=== PATIENT | female | born 1970 | race Caucasian/White ===

== ENCOUNTER → 2016-10-17 | Outpatient (CLI) | payer BC ==
--- NOTE | 2016-10-17 10:46 | US ---
October 17, [address] Dean and Providers at [facility], Thank you for requesting consultation and a detailed obstetrical ultrasound for Ms. Tawanda chavezar y to advanced maternal age with an IVF . As you know, Waleska is a 46 year old G 3, P 0020 . Her due date is 03/13/17 by IVF dating. Her current gestational age based on this dating is 19 weeks 0 days. Her genetic screening revealed a reassuring NIPT and MSAFP screen. Her is complicated by advanced maternal age, IVF using donor embryo (egg and sperm), histor y of LEEP, and chronic hypertension not requiring medications. Her blood pressure in our office was 134/98. She says that this is the range at home too. She had a cardiac workup prior to IVF about a year ago with [facility]. No significant concerns occurred. She has known proteinuria at 449 mg and a normal Cr of 0.6. ULTRASOUND Number of fetuses: 1 Placental location: Posterior and low lying 1.7-2.1 cm from the os. Color and Spectral Doppler reve al a maternal vessel adjacent to the internal cervix but no overlying vessels. Placental cord insertion: Intraplacental presentation: Cephalic Cervix: 4.5 cm viewed transvaginally. There is no evidence of cervical insufficiency. Maximum Vertical Pocket: 4.0 cm The adnexa were evaluated. No pathology was seen. Right ovary is not seen on today's ultrasound. Left ovary is not seen on today's ultrasound. MEASUREMENTS: Biparietal diameter: 44 mm 19 weeks, 3 days Head circumference: 167 mm 19 weeks, 3 days Abdominal circumference: 143 mm 19 weeks, 5 days Femur length: 28 mm 18 weeks, 3 days Humerus length: 28 mm 19 weeks, 0 days Transcerebellar diameter: 20 mm 19 weeks, 4 days Average ultrasound age: 19 weeks, 2 days Estimated weight: 274 gm weight percentile: 51% ANATOMY Supratentorial brain: Normal including views of the falx, cavum septum pellucidum and choroids Lateral Ventricle: Normal, measuring 4.3 mm Posterior fossa: Normal including the cerebellum and cisterna magna Spine: Normal Nuchal fold: 3.4 mm normal Face: Normal views of the lip and nose area Profile: Normal Palate: Normal appearance of the alveolar ridge Cardiac Exam: Four chamber view of the heart: Normal including intraventricular septum Left Ventricular Outflow Tract: Normal Right Ventricular Outflow Tract: Normal 3 Vessel View: Normal Tracheal View: Normal Aortic Arch: Normal Ductal Arch: Normal SVC/IVC: Normal Heart Rate: 163 bpm Diaphragm: No overt abnormalities have been detected Stomach: Normal Umbilical cord insertion: Normal Right kidney: Normal Left kidney: Normal Bladder: Normal Number of cord vessels: Three Upper extremities: Normal including the number, and architecture Lower extremities: Normal including the number and architecture Gender: Male IMPRESSION: 1. Intrauterine at 19 w 0 d, LIGIA of 03/13/17. This is consistent with her previously esta blished dates. 2. Today's sonogram reveals a normal appearing fetus. 3. Cervical length measures 4.5 cm, and is without evidence of insufficiency. 4. Low lying posterior placenta 5. Advanced maternal age 6. IVF using a donor embryo 7. Chronic hypertension RECOMMENDATIONS: I was pleased to review today's ultrasound with your patient. I have reassured her that the gr owth and amniotic fluid volume are appropriate for this gestational age. The detailed anatomic surve y did not reveal any overt abnormalities. This was conceived using a donor embryo an d the genetic risk is based on the young age. Thus, she is low risk for aneuploidy. A transvaginal ultrasound was performed to better evaluate the relationship of the placenta to the ce rvix. The placenta is low lying and very likely will resolve later in . There were no over lying vessels. Despite her history of LEEP, her cervix appeared long and closed without concer ns for insufficiency. We discussed the cardiovascular system as it pertains to , particularly the changes of blood volume and vascular resistance. Her preexisting hypertension has already yielded proteinuria. This will likely increase in the third trimester related to the increased renal plasma flow and will not necessarily be a good measure to evaluate risk for preeclampsia. We discussed that she has several r isk factors for preeclampsia including first , family history, IVF, CHTN and advanced matern al age. She is already on low dose aspirin to decrease the risk. We reviewed potential signs/sympto ms worrisome for preeclampsia. Chronic hypertension should have antihypertensive medication when blo od pressures are in the severe range (SBP >160 and/or DBP >105). Antepartum testing and growth evalu ation in the third trimester would also be recommended if on antihypertensives. In addition to preec lampsia, chronic hypertension can increase risks including but not limited to worsening of hypertension outside of with potential for end organ damage if poorly controlled, miscarria ge/stillbirth, abruption, poor growth, operative delivery and delivery with its inheren t risks. Delivery planning is dependent on the course of care, but for uncomplicated chroni c hypertension delivery could be considered at 38 weeks; earlier if clinically indicated for other ma ternal/ complication. In summary, I recommend the followin. Continue low dose aspirin. 2. Continue home assessment of blood pressure and instructed to call for severe range blood pressure s. 3. Antihypertensives recommended for severe range blood pressures and careful assessment for superim posed preeclampsia. It is important to note that proteinuria may increase in the third trimester and may not be indicative of preeclampsia. 4. Antepartum testing if antihypertensives started for blood pressure control, or at 36 weeks for ag e >40 years. 5. Ultrasound follow up as follows: -I have taken the liberty of scheduling your patient for a echocardiogram in 4-5 weeks with [facility] -Follow up assessment of placenta location and growth at 28 weeks. -Follow up growth at 32 weeks secondary to AMA >40 and CHTN 6. Delivery planning: Dependent on the course of care; likely at 38 weeks. Earlier if clinically i ndicated. Thank you for allowing me the opportunity to consult and evaluate your patient. Should you have any questions or concerns please do not hesitate to contact me. This visit was approximately 45 minutes in length with 30 minutes spent in direct face to face consultation reviewing aneuploidy screening ve rsus definitive genetic diagnosis. Sincerely, Radha Jonas MD [facility] Department of Obstetrics & Gynecology [facility]
--- NOTE | 2016-10-17 11:24 | US ---
OB Sonogram Technique: Transabdominal and transvaginal scanning History: LIGIA March 13, 2017, 19 weeks 0 days, check growth and anatomy, advanced maternal age, history of complete previa at 16 weeks Comparison: None Findings: The cervix is closed measuring 4.2-3.9 cm transabdominally. Transvaginally the cervix measu res 4.5 cm in length. There is no funneling of the internal os. The posterior margin of the placenta is 1.7-2.1 cm above the internal os transvaginally. The fetus is in vertex presentation. Placenta is posterior without abruption. Maximum amniotic fluid pocket = 4.0 cm. Either maternal ovary is visible. The heart is 4 chambered and has a rate of 1 63 bpm. The right and left ventricular outflow tra cks look normal. The interventricular septum is present. The visualized intracranial cont ents, face and spine look normal. Fluid is identified in the stomach and urin chris bladder. The renal region looks normal. There is a three-vessel umbilical cord that has a n ormal insertion site. 4 extremities are present. BPD = 44 mm = 19 weeks 3 days Head circumference = 167 mm = 19 weeks 3 days Abdominal circumference = 143 mm = 19 weeks 5 days Femur length = 28 mm = 18 weeks 3 days Humeral length = 28 mm = 19 weeks 0 days Cerebellar width = 20 mm = 19 weeks 4 days Cisterna magna = 2.7 mm Estimated weight = 51 percentile Gestational age by ultrasound = 19 weeks 2 days LIGIA by ultrasound = March 11, 2017 Impression: 1. Size consistent with dates. Normal anatomy. 2. Low-lying posterior placenta without previa. There is a maternal cervical vessel adjacent to the i nternal os, but no vessels. This report should be read in conjunction with a consultation by Dr. Aliya Mathias.
== END ==
LOC: FIMAGING 08:28
PROVIDERS: ATTEND Obstetrics & Gynecology
DX: O09.522 Supervision of elderly multigravida, second trimester (principal); O09.812 Supervision of pregnancy resulting from assisted reproductive technology, second trimester; I10 Essential (primary) hypertension; Z3A.19 19 weeks gestation of pregnancy

== ENCOUNTER → 2016-12-18 | Outpatient (CLI) | payer BC | LOC: FIMAGING 13:58 | PROVIDERS: ATTEND Obstetrics & Gynecology | DX: O09.522 Supervision of elderly multigravida, second trimester (principal); O09.812 Supervision of pregnancy resulting from assisted reproductive technology, second trimester; O10.013 Pre-existing essential hypertension complicating pregnancy, third trimester; Z3A.27 27 weeks gestation of pregnancy ==

== ENCOUNTER → 2017-01-23 | Outpatient (CLI) | payer BC | LOC: FIMAGING 13:48 | PROVIDERS: ATTEND Advanced Practice Midwife | DX: O10.013 Pre-existing essential hypertension complicating pregnancy, third trimester (principal); O09.813 Supervision of pregnancy resulting from assisted reproductive technology, third trimester; O09.523 Supervision of elderly multigravida, third trimester; Z3A.33 33 weeks gestation of pregnancy ==

== ENCOUNTER → 2018-12-23 | Outpatient (CLI) | payer BC | LOC: FIMAGING 12:31 | PROVIDERS: ATTEND Family Medicine | DX: Z12.31 Encounter for screening mammogram for malignant neoplasm of breast (principal) ==